=== PATIENT | male | born 1990 | race Caucasian/White ===

== ENCOUNTER 2017-01-04 14:24 | Inpatient (IN) | payer BC, MEDICAID ==
[2017-01-04] VITALS (267 sets, daily range): BP systolic 150; BP diastolic 112; PULSE 117; TEMP 98.3; O2SAT 90–100
[~2017-01-04] VITALS: Ht 147.3 cm; Wt 46.7 kg
[2017-01-04] MEDS ORDERED: ALBUTEROL0.83 MG/ML IH (14:38)
[2017-01-04] MEDS ORDERED: TOBRADEX EYE O3.5 GM TOP (15:05)
[2017-01-04] MEDS ORDERED: LACRI LUBE1 OIN OP (15:06)
[2017-01-04] MEDS ORDERED: NS 10ML VIAL 1010 ML IH (15:09)
[2017-01-04] MEDS ORDERED: PREVACID 15MG15 M1 PEG (15:21)
[2017-01-04] MEDS ORDERED: PREVACID SOLUTA30 M2 PEG (15:23)
[2017-01-04 15:25] LABS: HEMOGLOBIN 17.6 g/dl (13.5-18.0); MEAN CELL VOLUME 89 fl (80.0-100.0); MEAN CORPUSCULAR HEMOGLOBIN 30 pg (27.0-31.0); MEAN CORPUSCULAR HGB CONC 34 g/dl (33.0-37.0); MEAN PLATELET VOLUME 11.2 fl (7.4-10.4); PLATELET COUNT 218 K/mm3 (130-400); RED BLOOD COUNT 5.87 M/mm3 (4.20-5.60); REDCELL DISTRIBUTION WIDTH-CV 13.2 % (11.5-14.5)
[2017-01-04 15:27] LABS: HEMATOCRIT 52.5 % (42.0-52.0); WHITE BLOOD COUNT 20.6 K/mm3 (4.8-10.8)
[2017-01-04 15:28] LABS: ADD PATHOLOGY DIFF REVIEW NO
[2017-01-04 16:20] LABS: BAND 7 % (0-10); PLATELET ESTIMATE NORMAL (NORMAL)
[2017-01-04 16:21] LABS: NEUTROPHILS 84 % (42.0-75.2); TOTAL CELLS COUNTED 200
[2017-01-04 17:05] LABS: PH 7 (5-8); SQUAMOUS EPITHELIAL None Seen /hpf; URINE APPEARANCE Hazy; URINE BACTERIA None Seen /hpf; URINE BILIRUBIN Negative (NEGATIVE); URINE BLOOD Negative (NEGATIVE); URINE COLOR Yellow; URINE GLUCOSE Negative (NEGATIVE); URINE KETONE 2+ (NEGATIVE); URINE UROBILINOGEN Negative (NEGATIVE); URINE WBC 0-2 /hpf
[2017-01-04 17:28] LABS: ADJUSTED CALCIUM 8.8 mg/dL (8.4-10.2); ALBUMIN 4.5 gm/dL (3.5-5.0); ANION GAP 17 mmol/L (7-16); C-REACTIVE PROTEIN 3.2 mg/dL (0.0-0.9); CALCIUM 9.2 mg/dL (8.4-10.2); CARBON DIOXIDE 27 mmol/L (22-30); CHLORIDE 104 mmol/L (98-107); CREATININE, serum 0.08 mg/dL (0.66-1.25); GLUCOSE 170 mg/dL (74-106); SODIUM 148 mmol/L (137-145); TOTAL PROTEIN 8.4 gm/dL (6.4-8.2)
[2017-01-04 18:29] LABS: ARTERIAL BLD GAS O2 SATURATION 97.6 % (92-100); ARTERIAL BLD GAS TCO2 CT 22.1; ARTERIAL BLOOD GAS BASE EXCESS -3.6 (-2-2); ARTERIAL BLOOD GAS PHT 7.38 C (7.35-7.45); ARTERIAL BLOOD GAS pH 7.38 (7.35-7.45); OXYHEMOGLOBIN 96.6 %
[2017-01-04 18:31] LABS: ATS? NO
[2017-01-04 18:32] LABS: ALLEN TEST NO; ALLENS TEST RESULT PASS
[2017-01-04 18:34] LABS: ADJUSTED CALCIUM 8.7 mg/dL (8.4-10.2); ALBUMIN 4.1 gm/dL (3.5-5.0); BILIRUBIN,TOTAL 0.7 mg/dL (0.0-1.0); CALCIUM 8.8 mg/dL (8.4-10.2); CREATININE, serum 0.1 mg/dL (0.66-1.25); TOTAL PROTEIN 7.7 gm/dL (6.4-8.2)
[2017-01-04 18:36] LABS: POTASSIUM 2.3 mmol/L (3.4-5.0)
[2017-01-04 19:43] LABS: MAGNESIUM 2.2 mg/dL (1.6-2.3)
[2017-01-04] MEDS ORDERED: SILACE150 MG/15 PO (21:27)
[2017-01-04] MEDS ORDERED: FLONASE NASAL S16 GM NS (21:29)
[2017-01-05] VITALS (1334 sets, daily range): BP systolic 127–144; BP diastolic 91–108; PULSE 93–130; TEMP 99–101.1; O2SAT 46–100
[2017-01-05 06:02] LABS: HEMATOCRIT 42.1 % (42.0-52.0); MEAN CELL VOLUME 91 fl (80.0-100.0); MEAN CORPUSCULAR HEMOGLOBIN 30 pg (27.0-31.0); MEAN CORPUSCULAR HGB CONC 33 g/dl (33.0-37.0); MEAN PLATELET VOLUME 11.3 fl (7.4-10.4); PLATELET COUNT 205 K/mm3 (130-400); RED BLOOD COUNT 4.61 M/mm3 (4.20-5.60); REDCELL DISTRIBUTION WIDTH-CV 13.3 % (11.5-14.5); WHITE BLOOD COUNT 17.5 K/mm3 (4.8-10.8)
[2017-01-05 06:09] LABS: ADD PATHOLOGY DIFF REVIEW NO
[2017-01-05 06:13] LABS: BAND 17 % (0-10); NEUTROPHILS 65 % (42.0-75.2); TOTAL CELLS COUNTED 100
[2017-01-05 06:14] LABS: ADJUSTED CALCIUM 8.6 mg/dL (8.4-10.2); ALBUMIN 3.5 gm/dL (3.5-5.0); BILIRUBIN,TOTAL 0.6 mg/dL (0.0-1.0); CALCIUM 8.2 mg/dL (8.4-10.2); CREATININE, serum 0.07 mg/dL (0.66-1.25); POTASSIUM 4.2 mmol/L (3.4-5.0); TOTAL PROTEIN 6.9 gm/dL (6.4-8.2)
[2017-01-05 09:51] LABS: INFLUENZA B NEGATIVE
[2017-01-06] VITALS (1152 sets, daily range): BP systolic 129–143; BP diastolic 90–103; PULSE 91–112; TEMP 97.7–99.1; O2SAT 91–100
[2017-01-06 06:53] LABS: ADJUSTED CALCIUM 8.2 mg/dL (8.4-10.2); ALBUMIN 3.6 gm/dL (3.5-5.0); BILIRUBIN,TOTAL 0.7 mg/dL (0.0-1.0); CALCIUM 7.9 mg/dL (8.4-10.2); CREATININE, serum 0.11 mg/dL (0.66-1.25); MAGNESIUM 1.5 mg/dL (1.6-2.3); PHOSPHOROUS 1.6 mg/dL (2.5-4.5)
[2017-01-06 06:57] LABS: POTASSIUM 1.7 mmol/L (3.4-5.0)
[2017-01-06 07:05] LABS: BASO # 0.1 (0.0-0.2); BASO % 0.6 % (0.0-2.0); EOS % 0.2 % (0-4.0); GRAN # 11.6 (1.4-6.5); GRAN % 81.6 % (42.2-75.2); HEMATOCRIT 41.2 % (42.0-52.0); HEMOGLOBIN 14.1 g/dl (13.5-18.0); LYMPH # 1.1 (1.2-3.4); LYMPH % 7.7 % (20.0-51.0); MEAN CELL VOLUME 88 fl (80.0-100.0); MEAN CORPUSCULAR HEMOGLOBIN 30 pg (27.0-31.0); MEAN CORPUSCULAR HGB CONC 34 g/dl (33.0-37.0); MEAN PLATELET VOLUME 11.3 fl (7.4-10.4); MONO # 1.3 (0.1-0.6); MONO % 9.3 % (1.7-9.3); PLATELET COUNT 224 K/mm3 (130-400); RED BLOOD COUNT 4.67 M/mm3 (4.20-5.60); REDCELL DISTRIBUTION WIDTH-CV 13.1 % (11.5-14.5); WHITE BLOOD COUNT 14.2 K/mm3 (4.8-10.8)
[2017-01-06 11:07] LABS: MAGNESIUM 1.5 mg/dL (1.6-2.3); PHOSPHOROUS 1.3 mg/dL (2.5-4.5)
[2017-01-06 11:12] LABS: POTASSIUM 2.6 mmol/L (3.4-5.0)
[2017-01-06 18:46] LABS: MAGNESIUM 3.1 mg/dL (1.6-2.3); POTASSIUM 5.7 mmol/L (3.4-5.0)
[2017-01-07] VITALS (102 sets, daily range): BP systolic 115–155; BP diastolic 87–112; PULSE 84–125; TEMP 97–98.5; O2SAT 88–100
[2017-01-07 00:24] LABS: MAGNESIUM 2.5 mg/dL (1.6-2.3); POTASSIUM 3.7 mmol/L (3.4-5.0)
[2017-01-07 05:30] LABS: BASO # 0.1 (0.0-0.2); BASO % 0.5 % (0.0-2.0); EOS # 0.1 (0.0-0.7); EOS % 0.5 % (0-4.0); GRAN # 8.4 (1.4-6.5); GRAN % 76.3 % (42.2-75.2); HEMATOCRIT 40.2 % (42.0-52.0); HEMOGLOBIN 13.4 g/dl (13.5-18.0); LYMPH # 1.2 (1.2-3.4); LYMPH % 11.1 % (20.0-51.0); MEAN CELL VOLUME 90 fl (80.0-100.0); MEAN CORPUSCULAR HEMOGLOBIN 30 pg (27.0-31.0); MEAN CORPUSCULAR HGB CONC 33 g/dl (33.0-37.0); MEAN PLATELET VOLUME 10.9 fl (7.4-10.4); MONO # 1.2 (0.1-0.6); MONO % 11.1 % (1.7-9.3); PLATELET COUNT 228 K/mm3 (130-400); RED BLOOD COUNT 4.46 M/mm3 (4.20-5.60); REDCELL DISTRIBUTION WIDTH-CV 13.1 % (11.5-14.5)
[2017-01-07 05:44] LABS: ADJUSTED CALCIUM 8.4 mg/dL (8.4-10.2); ALBUMIN 3.2 gm/dL (3.5-5.0); BILIRUBIN,TOTAL 0.6 mg/dL (0.0-1.0); CALCIUM 7.8 mg/dL (8.4-10.2); CREATININE, serum 0.08 mg/dL (0.66-1.25); MAGNESIUM 2.2 mg/dL (1.6-2.3); POTASSIUM 3.3 mmol/L (3.4-5.0); TOTAL PROTEIN 6.4 gm/dL (6.4-8.2)
[2017-01-07] MEDS ORDERED: AZITHROMYC200 MG/5 M PO (11:11)
[2017-01-07] MEDS ORDERED: CLEOCIN 751500 MG/10 PO (11:11)
== END 2017-01-07 17:55 | disposition home health service (06) | DRG 194 ==
LOC: COL.ER 14:24 → ICU 15:58
PROVIDERS: Anesthesiology Critical Care Medicine; Family Medicine; Internal Medicine Pulmonary Disease; Nurse Practitioner Family
DX: J18.9 Pneumonia, unspecified organism (principal); Z99.11 Dependence on respirator [ventilator] status; G71.0 Muscular dystrophy; E87.0 Hyperosmolality and hypernatremia; E87.5 Hyperkalemia; Z93.1 Gastrostomy status; Z93.0 Tracheostomy status; E83.42 Hypomagnesemia
CPT/HCPCS: 99223-AI; 99233-AI; 99239; A4315; C1751; J0456; J1644; J1650; J3370; J3475; J3480; J7030; J7050